=== PATIENT | female | born 1965 | race Two or more races ===

== ENCOUNTER 2021-10-20 11:45 | Inpatient (IN) | payer OTHER ==
[~2021-10-20] VITALS: Ht 160 cm; Wt 135.2 kg
[2021-10-20] MEDS ORDERED: CYMBALTA60 MG PO (15:12)
[2021-10-20] MEDS ORDERED: VASOTEC5 MG PO (15:13)
[2021-10-20] MEDS ORDERED: GABAPENTIN100 M2 PO (15:13)
== END 2021-10-23 10:52 | disposition home or self-care (01) | DRG 741 ==
LOC: OB/GYN 10-22 06:30 → O/R 10-22 06:30 → OB/GYN 10-22 09:45
PROVIDERS: ADMIT Obstetrics & Gynecology Gynecologic Oncology; ATTEND Obstetrics & Gynecology Gynecologic Oncology
PROC: 0UT24ZZ Resection of Bilateral Ovaries, Percutaneous Endoscopic Approach (ICD-10-PCS; 2021-10-22)
PROC: 0UT74ZZ Resection of Bilateral Fallopian Tubes, Percutaneous Endoscopic Approach (ICD-10-PCS; 2021-10-22)
PROC: 07BC4ZZ Excision of Pelvis Lymphatic, Percutaneous Endoscopic Approach (ICD-10-PCS; 2021-10-22)
PROC: 0UT94ZZ Resection of Uterus, Percutaneous Endoscopic Approach (ICD-10-PCS; principal; 2021-10-22 09:45)
DX: C54.1 Malignant neoplasm of endometrium (principal); D36.0 Benign neoplasm of lymph nodes; N80.0 Endometriosis of uterus; N84.0 Polyp of corpus uteri; E66.01 Morbid (severe) obesity due to excess calories